=== PATIENT | male | born 1985 | race Caucasian/White ===

== ENCOUNTER 2016-12-21 17:37 | Observation (INO) | payer BC ==
[2016-12-21] MEDS ORDERED: ONDANSETRON 4 MG/2 ML VIAL IVP ONE (18:46)
[2016-12-21] MEDS ORDERED: fentaNYL 100 MCG/2 ML INJ IVP ONE (18:46)
[2016-12-21] MEDS ORDERED: NS 1,000 ML IV ONE (18:46)
--- NOTE | 2016-12-21 18:51 | EDPHY ---
H & P Time Seen by Provider: 12/21/16 18:36 HPI/ROS: CHIEF COMPLAINT: Abdominal pain HISTORY OF PRESENT ILLNESS: Patient had 3 weeks ago pretty serious gastroenteritis with vomiting and diarrhea and then recovered. But 4 days ago started intermittent lower abdominal pain right greater than left. Radiates to both testicles but not associated with urinary symptoms. A little bit of back pain but bilateral. Associated with subjective fever and chills and nausea but no vomiting. No diarrhea. Symptoms moderate. Went to his primary care physician's office and referred here for further evaluation. REVIEW OF SYSTEMS: Eye: no change in vision ENT: no sore throat Cardiac: no chest pain or syncope Pulmonary: no cough or SOB Abdomen: HPI Musculoskeletal: no back pain Skin: no rash Neuro: no headache Constitutional: HPI : No dysuria or hematuria A comprehensive 10 point review of systems is otherwise negative aside from elements mentioned in the history of present illness. PAST MEDICAL HISTORY: Negative Family history: Multiple second-degree relatives with Crohn's disease. Social history: No recent foreign travel and no drug use General Appearance: Alert and conversant, cooperative. Eyes: No scleral icterus. ENT, Mouth: Normal mucous membranes. Respiratory: Normal respiratory effort, breath sounds equal, lungs are clear to auscultation. Cardiovascular: Regular rate and rhythm. Gastrointestinal: Right lower quadrant tenderness greater than left but no rebound or guarding. Normal male . Neurological: Alert and oriented x3. Normally conversant. Face symmetric, normal movement and sensation in all extremities. Skin: Warm and dry, no rashes. Musculoskeletal: No peripheral edema and no joint swelling. Psychiatric: Not agitated. Emergency Department course/MDM: Normal saline 1 L, probably likely mildly clinically dehydrated with decreased oral intake and heart rate 100. Fentanyl 100 mcg IV and Zofran 4 mg IV. I- STAT and CT scanning. 1921: Creatinine 0.9, abdominal CT scan ordered. 2046: CT scanning per Dr. Cleary reveals appendicitis ruptured with walled- off perforation. IV Invanz, surgical consultation, admission. Discussed results with patient and father and Delilah at this time. Smoking Status: Never smoked Constitutional: Initial Vital Signs Temperature (C) 38.6 C H 12/21/16 17:50 Heart Rate 100 12/21/16 17:50 Respiratory Rate 14 12/21/16 17:50 Blood Pressure 99/70 L 12/21/16 17:50 O2 Sat (%) 96 12/21/16 17:50 O2 Delivery Mode Room Air Allergies/Adverse Reactions: No Known Allergies Allergy (Unverified 12/21/16 17:56) Home Medications: Medication Instructions Recorded NK [No Known Home Meds] 12/21/16 Medical Decision Making - Diagnostics Imaging Results: Imaging Impressions Abdomen CT 12/21/16 19:21 Impression: 1. Appendicitis with suspected rupture and phlegmon, as well as a small amount of free fluid extending caudally into the pelvis, with an associated right lower quadrant reactive lymphadenitis. 2. Ectopic pelvic left kidney. Findings were discussed with BENITEZ NUNES MD at 20:42, on 12/21/2016. Differential Diagnosis: Differential diagnosis considered for abdominal pain including but not limited to appendicitis, cholecystitis, pancreatitis, gastritis and urinary tract infection. Consult/Admit Bed Type: [facility] [employer] construction [employer] - Data Points Laboratory Results: Laboratory Results 12/21/16 18:50 12/21/16 18:50 12/21/16 12/21/16 12/21/16 20:25 18:57 18:50 WBC RBC Hgb POC Hgb 14.3 gm/dL gm/dL (13.7-17.5) Hct POC Hct 42 % % (40-51) MCV MCH MCHC RDW Plt Count MPV Neut % (Auto) Lymph % (Auto) [place] % (Auto) Eos % (Auto) Baso % (Auto) Nucleat RBC Rel Count Absolute Neuts (auto) Absolute Lymphs (auto) Absolute Monos (auto) Absolute Eos (auto) Absolute Basos (auto) Absolute Nucleated RBC Immature Gran % Immature Gran # PT INR APTT VBG Lactic Acid POC Sodium 142 mEq/L mEq/L (134-144) Sodium 140 mEq/L mEq/L (134-144) POC Potassium 3.2 mEq/L L mEq/L (3.3-5.0) Potassium 3.6 mEq/L mEq/L (3.5-5.2) POC Chloride 102 mEq/L mEq/L (97-110) Chloride 100 mEq/L mEq/L (97-110) Carbon Dioxide 24 mEq/l mEq/l (22-31) Anion Gap 16 mEq/L mEq/L (8-16) POC BUN 13 mg/dL mg/dL (7-23) BUN 14 mg/dL mg/dL (7-23) Creatinine 1.0 mg/dL mg/dL (0.7-1.3) POC Creatinine 0.9 mg/dL mg/dL (0.7-1.3) Estimated GFR > 60 Glucose 98 mg/dL mg/dL (70-100) POC Glucose 95 mg/dL mg/dL (70-100) Calcium 9.8 mg/dL mg/dL (8.5-10.4) Total Bilirubin 1.0 mg/dL mg/dL (0.1-1.4) Conjugated Bilirubin 0.2 mg/dL mg/dL (0.0-0.5) Unconjugated Bilirubin 0.8 mg/dL mg/dL (0.0-1.1) AST 16 IU/L L IU/L (17-59) ALT 33 IU/L IU/L (21-72) Alkaline Phosphatase 78 IU/L IU/L (38-126) Total Protein 7.7 g/dL g/dL (6.3-8.2) Albumin 4.4 g/dL g/dL (3.5-5.0) Lipase 49 IU/L IU/L (23-300) Urine Color PALE YELLOW Urine Appearance CLEAR Urine pH 6.0 (5.0-7.5) Ur Specific [place] 1.023 (1.002-1.030) Urine Protein NEGATIVE (NEGATIVE) Urine Ketones TRACE H (NEGATIVE) Urine Blood 1+ H (NEGATIVE) Urine Nitrate NEGATIVE (NEGATIVE) Urine Bilirubin NEGATIVE (NEGATIVE) Urine Urobilinogen NEGATIVE EU EU (0.2-1.0) Ur Leukocyte Esterase NEGATIVE (NEGATIVE) Urine RBC 1-3 /hpf /hpf (0-3) Urine WBC 1-3 /hpf /hpf (0-3) Ur Epithelial Cells NONE SEEN /lpf /lpf (NONE-1+) Urine Mucus TRACE /lpf /lpf (NONE-1+) Urine Glucose NEGATIVE (NEGATIVE) 12/21/16 12/21/16 12/21/16 18:50 18:50 18:50 WBC 13.00 10^3/uL H 10^3/uL (3.80-9.50) RBC 4.85 10^6/uL 10^6/uL (4.40-6.38) Hgb 14.9 g/dL g/dL (13.7-17.5) POC Hgb Hct 43.4 % % (40.0-51.0) POC Hct MCV 89.5 fL fL (81.5-99.8) MCH 30.7 pg pg (27.9-34.1) MCHC 34.3 g/dL g/dL (32.4-36.7) RDW 11.6 % % (11.5-15.2) Plt Count 273 10^3/uL 10^3/uL (150-400) MPV 10.5 fL fL (8.7-11.7) Neut % (Auto) 72.0 % % (39.3-74.2) Lymph % (Auto) 17.0 % % (15.0-45.0) [place] % (Auto) 10.0 % % (4.5-13.0) Eos % (Auto) 0.4 % L % (0.6-7.6) Baso % (Auto) 0.3 % % (0.3-1.7) Nucleat RBC Rel Count 0.0 % % (0.0-0.2) Absolute Neuts (auto) 9.36 10^3/uL H 10^3/uL (1.70-6.50) Absolute Lymphs (auto) 2.21 10^3/uL 10^3/uL (1.00-3.00) Absolute Monos (auto) 1.30 10^3/uL H 10^3/uL (0.30-0.80) Absolute Eos (auto) 0.05 10^3/uL 10^3/uL (0.03-0.40) Absolute Basos (auto) 0.04 10^3/uL 10^3/uL (0.02-0.10) Absolute Nucleated RBC 0.00 10^3/uL 10^3/uL (0-0.01) Immature Gran % 0.3 % % (0.0-1.1) Immature Gran # 0.04 10^3/uL 10^3/uL (0.00-0.10) PT 14.2 SEC SEC (12.0-15.0) INR 1.11 (0.83-1.16) APTT 31.5 SEC SEC (23.0-38.0) VBG Lactic Acid 0.8 mmol/L mmol/L (0.7-2.1) POC Sodium Sodium POC Potassium Potassium POC Chloride Chloride Carbon Dioxide Anion Gap POC BUN BUN Creatinine POC Creatinine Estimated GFR Glucose POC Glucose Calcium Total Bilirubin Conjugated Bilirubin Unconjugated Bilirubin AST ALT Alkaline Phosphatase Total Protein Albumin Lipase Urine Color Urine Appearance Urine pH Ur Specific Plain Urine Protein Urine Ketones Urine Blood Urine Nitrate Urine Bilirubin Urine Urobilinogen Ur Leukocyte Esterase Urine RBC Urine WBC Ur Epithelial Cells Urine Mucus Urine Glucose Medications Given: Ertapenem 1 gm/ Sodium (Chloride) 100 mls @ 200 mls/hr IV EDNOW ONE PRN Reason: Protocol Stop: 12/21/16 21:29 Last Admin: 12/21/16 21:16 Dose: 100 mls Discontinued Medications Fentanyl (Sublimaze) 100 mcg IVP EDNOW ONE Stop: 12/21/16 18:47 Last Admin: 12/21/16 19:09 Dose: 100 mcg Sodium Chloride (Ns) 1,000 mls @ 0 mls/hr IV EDNOW ONE; Wide Open PRN Reason: Protocol Stop: 12/21/16 18:47 Last Admin: 12/21/16 19:10 Dose: 1,000 mls Ondansetron HCl (Zofran) 4 mg IVP EDNOW ONE Stop: 12/21/16 18:47 Last Admin: 12/21/16 19:09 Dose: 4 mg Point of Care Test Results: 12/21/16 18:57 POC Sodium 142 POC Potassium 3.2 L POC Chloride 102 POC BUN 13 POC Creatinine 0.9 POC Glucose 95 Departure - Departure Disposition: [facility] Inpatient Acute Clinical Impression: Acute appendicitis with rupture Condition: Good
[2016-12-21 19:02] LABS: % IMMATURE GRANULYOCYTES 0.3 % (0.0-1.1); ABSOLUTE IMMATURE GRANULOCYTES 0.04 10^3/uL (0.00-0.10); ADD DIFF? NO; ADD MORPH? NO; ADD SCAN? NO; ATYPICAL LYMPHOCYTE FLAG 10 (0-99); FRAGMENT RBC FLAG 0 (0-99); HEMATOCRIT 43.4 % (40.0-51.0); HEMOGLOBIN 14.9 g/dL (13.7-17.5); LEFT SHIFT FLG 0 (0-99); LIPEMIA HEMOLYSIS FLAG 90 (0-99); MEAN CELL HEMOGLOBIN 30.7 pg (27.9-34.1); MEAN CELL HEMOGLOBIN CONCENTR. 34.3 g/dL (32.4-36.7); MEAN CELL VOLUME 89.5 fL (81.5-99.8); MEAN PLATELET VOLUME 10.5 fL (8.7-11.7); PLATELET CLUMPS FLAG 0 (0-99); PLATELET COUNT 273 10^3/uL (150-400); RED BLOOD CELL COUNT 4.85 10^6/uL (4.40-6.38); RED CELL DISTRIBUTION WIDTH 11.6 % (11.5-15.2)
[2016-12-21 19:11] LABS: APTT 31.5 SEC (23.0-38.0); INR 1.11 (0.83-1.16); PROTIME(PATIENT) 14.2 SEC (12.0-15.0)
[2016-12-21 19:22] LABS: ALANINE AMINOTRANSFERASE 33 IU/L (21-72); ALBUMIN 4.4 g/dL (3.5-5.0); ALKALINE PHOSPHATASE 78 IU/L (38-126); ANION GAP 16 mEq/L (8-16); ASPARTATE AMINOTRANSFERASE 16 IU/L (17-59); BILIRUBIN-CONJUGATED 0.2 mg/dL (0.0-0.5); BILIRUBIN-UNCONJUGATED 0.8 mg/dL (0.0-1.1); CALCIUM 9.8 mg/dL (8.5-10.4); CARBON DIOXIDE 24 mEq/l (22-31); CHLORIDE 100 mEq/L (97-110); GLOMERULAR FILTRATION RATE > 60; GLUCOSE 98 mg/dL (70-100); POTASSIUM 3.6 mEq/L (3.5-5.2); SODIUM 140 mEq/L (134-144); TOTAL PROTEIN 7.7 g/dL (6.3-8.2)
[2016-12-21] MEDS ORDERED: IOPAMIDOL (ISOVUE-300) 100 ML BTL ONE (19:29)
[2016-12-21 20:44] LABS: COLOR PALE YELLOW; LEUKOCYTE ESTERASE,URINE NEGATIVE (NEGATIVE); NITRITE,URINE NEGATIVE (NEGATIVE)
[2016-12-21 20:48] LABS: MUCUS TRACE /lpf (NONE-1+)
[2016-12-21] MEDS ORDERED: ERTAPENEM 1 GM in NS 100 ML IV ONE (21:00)
--- NOTE | 2016-12-21 22:57 | PDGENHP ---
History and Physical - Chief Complaint Right lower quadrant abdominal pain - History of Present Illness This is a 31-year-old gentleman who presents to the hospital for evaluation of 3 days of worsening right lower quadrant abdominal pain and testicular pain. The patient had been feeling ill for 3 days but was able to manage work and perform activities of daily living. Patient's pain was intractable and he decided to present to the emergency room for evaluation. CT scan of the abdomen and pelvis notable for what appears to be an appendiceal phlegmon without signs of abscess formation. Phlegmon is not an area that would be easily accessed with percutaneous drainage. History Information - Allergies/Home Medication List Allergies/Adverse Reactions: No Known Allergies Allergy (Unverified 12/21/16 17:56) Home Medications: NK [No Known Home Meds] 12/21/16 [Last Taken Unknown] I have personally reviewed and updated: family history, medical history, social history, surgical history - Past Medical History no pertinent PMH - Surgical History Reports: no pertinent surgical hx - Family History Positive for: non-pertinent - Social History Smoking Status: Never smoked Review of Systems ROS: 10pt was reviewed & negative except for what was stated in HPI & below Constitutional: Reports: fever, malaise Respiratory: Reports: no symptoms Gastrointestinal: Reports: other (Three weeks ago the entire family had gastroenteritis including the patient. This appeared to be self-limiting.) Physical Exam Temp Pulse Resp BP Pulse Ox 38.6 C H 91 16 125/75 H 100 12/21/16 17:50 12/21/16 20:00 12/21/16 20:00 12/21/16 20:00 12/21/16 20:00 Constitutional: not in pain, uncomfortable Eyes: anicteric sclera, EOMI Ears, Nose, Mouth, Throat: moist mucous membranes, hearing normal Cardiovascular: regular rate and rhythym Peripheral Pulses: 2+: carotid (R), carotid (L), femoral (R), femoral (L), dorsalis-pedis (R), dorsalis-pedis (L) Respiratory: no respiratory distress, clear to auscultation Gastrointestinal: no palpable masses, other (Tenderness just below McBurney's point), No guarding, No rebound, No distension Genitourinary: no bladder fullness Skin: warm, no rashes or abrasions, No mottled Musculoskeletal: full muscle strength, normal joint ROM Neurologic: AAOx3, CN II-XII Intact Psychiatric: interacting appropriately, not anxious Lab Data & Imaging Review 12/21/16 18:50 12/21/16 18:50 WBC 13.00 10^3/uL (3.80-9.50) H 12/21/16 18:50 RBC 4.85 10^6/uL (4.40-6.38) 12/21/16 18:50 Hgb 14.9 g/dL (13.7-17.5) 12/21/16 18:50 POC Hgb 14.3 gm/dL (13.7-17.5) 12/21/16 18:57 Hct 43.4 % (40.0-51.0) 12/21/16 18:50 POC Hct 42 % (40-51) 12/21/16 18:57 MCV 89.5 fL (81.5-99.8) 12/21/16 18:50 MCH 30.7 pg (27.9-34.1) 12/21/16 18:50 MCHC 34.3 g/dL (32.4-36.7) 12/21/16 18:50 RDW 11.6 % (11.5-15.2) 12/21/16 18:50 Plt Count 273 10^3/uL (150-400) 12/21/16 18:50 MPV 10.5 fL (8.7-11.7) 12/21/16 18:50 Neut % (Auto) 72.0 % (39.3-74.2) 12/21/16 18:50 Lymph % (Auto) 17.0 % (15.0-45.0) 12/21/16 18:50 Day % (Auto) 10.0 % (4.5-13.0) 12/21/16 18:50 Eos % (Auto) 0.4 % (0.6-7.6) L 12/21/16 18:50 Baso % (Auto) 0.3 % (0.3-1.7) 12/21/16 18:50 Nucleat RBC Rel Count 0.0 % (0.0-0.2) 12/21/16 18:50 Absolute Neuts (auto) 9.36 10^3/uL (1.70-6.50) H 12/21/16 18:50 Absolute Lymphs (auto) 2.21 10^3/uL (1.00-3.00) 12/21/16 18:50 Absolute Monos (auto) 1.30 10^3/uL (0.30-0.80) H 12/21/16 18:50 Absolute Eos (auto) 0.05 10^3/uL (0.03-0.40) 12/21/16 18:50 Absolute Basos (auto) 0.04 10^3/uL (0.02-0.10) 12/21/16 18:50 Absolute Nucleated RBC 0.00 10^3/uL (0-0.01) 12/21/16 18:50 Immature Gran % 0.3 % (0.0-1.1) 12/21/16 18:50 Immature Gran # 0.04 10^3/uL (0.00-0.10) 12/21/16 18:50 PT 14.2 SEC (12.0-15.0) 12/21/16 18:50 INR 1.11 (0.83-1.16) 12/21/16 18:50 APTT 31.5 SEC (23.0-38.0) 12/21/16 18:50 VBG Lactic Acid 0.8 mmol/L (0.7-2.1) 12/21/16 18:50 POC Sodium 142 mEq/L (134-144) 12/21/16 18:57 Sodium 140 mEq/L (134-144) 12/21/16 18:50 POC Potassium 3.2 mEq/L (3.3-5.0) L 12/21/16 18:57 Potassium 3.6 mEq/L (3.5-5.2) 12/21/16 18:50 POC Chloride 102 mEq/L (97-110) 12/21/16 18:57 Chloride 100 mEq/L (97-110) 12/21/16 18:50 Carbon Dioxide 24 mEq/l (22-31) 12/21/16 18:50 Anion Gap 16 mEq/L (8-16) 12/21/16 18:50 POC BUN 13 mg/dL (7-23) 12/21/16 18:57 BUN 14 mg/dL (7-23) 12/21/16 18:50 Creatinine 1.0 mg/dL (0.7-1.3) 12/21/16 18:50 POC Creatinine 0.9 mg/dL (0.7-1.3) 12/21/16 18:57 Estimated GFR > 60 12/21/16 18:50 Glucose 98 mg/dL (70-100) 12/21/16 18:50 POC Glucose 95 mg/dL (70-100) 12/21/16 18:57 Calcium 9.8 mg/dL (8.5-10.4) 12/21/16 18:50 Total Bilirubin 1.0 mg/dL (0.1-1.4) 12/21/16 18:50 Conjugated Bilirubin 0.2 mg/dL (0.0-0.5) 12/21/16 18:50 Unconjugated Bilirubin 0.8 mg/dL (0.0-1.1) 12/21/16 18:50 AST 16 IU/L (17-59) L 12/21/16 18:50 ALT 33 IU/L (21-72) 12/21/16 18:50 Alkaline Phosphatase 78 IU/L (38-126) 12/21/16 18:50 Total Protein 7.7 g/dL (6.3-8.2) 12/21/16 18:50 Albumin 4.4 g/dL (3.5-5.0) 12/21/16 18:50 Lipase 49 IU/L (23-300) 12/21/16 18:50 Urine Color PALE YELLOW 12/21/16 20:25 Urine Appearance CLEAR 12/21/16 20:25 Urine pH 6.0 (5.0-7.5) 12/21/16 20:25 Ur Specific [place] 1.023 (1.002-1.030) 12/21/16 20:25 Urine Protein NEGATIVE (NEGATIVE) 12/21/16 20:25 Urine Ketones TRACE (NEGATIVE) H 12/21/16 20:25 Urine Blood 1+ (NEGATIVE) H 12/21/16 20:25 Urine Nitrate NEGATIVE (NEGATIVE) 12/21/16 20:25 Urine Bilirubin NEGATIVE (NEGATIVE) 12/21/16 20:25 Urine Urobilinogen NEGATIVE EU (0.2-1.0) 08/19/17 20:25 Ur Leukocyte Esterase NEGATIVE (NEGATIVE) 12/21/16 20:25 Urine RBC 1-3 /hpf (0-3) 12/21/16 20:25 Urine WBC 1-3 /hpf (0-3) 12/21/16 20:25 Ur Epithelial Cells NONE SEEN /lpf (NONE-1+) 12/21/16 20:25 Urine Mucus TRACE /lpf (NONE-1+) 12/21/16 20:25 Urine Glucose NEGATIVE (NEGATIVE) 12/21/16 20:25 Imaging Review: Imaging Impressions Abdomen CT 12/21/16 19:21 Impression: 1. Appendicitis with suspected rupture and phlegmon, as well as a small amount of free fluid extending caudally into the pelvis, with an associated right lower quadrant reactive lymphadenitis. 2. Ectopic pelvic left kidney. Findings were discussed with BENITEZ NUNES MD at 20:42, on 12/21/2016. Visualized and Interpreted imaging results: Yes Assessment & Plan Assessment: Acute appendicitis with rupture (Acute) Ectopic left pelvic kidney Plan: Options for treatment include antibiotic treatment with watchful waiting and likely interval drainage or laparoscopic appendectomy with possibilities of inability to complete the surgery, injury to surrounding structures and need for more extensive resection. The risks benefits and alternatives of surgery were outlined clearly to the patient and his father all questions were addressed. Invanz was given for antibiotic treatment of appendicitis. The patient would like to proceed with surgery consent was obtained with verbal confirmation of understanding.
--- NOTE | 2016-12-22 00:15 | PDANEPAE ---
ANE History of Present Illness Ruptured appendicitis ANE Past Medical History - Pulmonary History Hx Sleep Apnea: No Sleep Apnea Screening Result - Last Documented: Positive - Endocrine History Hx Diabetes: No ANE Review of Systems - Exercise capacity METS (RN): 4 METS ANE Patient History - Allergies Allergies/Adverse Reactions: No Known Allergies Allergy (Unverified 12/21/16 17:56) - Home Medications Home medications: none Home Medications: NK [No Known Home Meds] 12/21/16 [Last Taken Unknown] - NPO status NPO Status: no food or drink >8 hours NPO Since - Liquids (Date): 12/21/16 NPO Since - Liquids (Time): 18:00 NPO Since - Solids (Date): 12/21/16 NPO Since - Solids (Time): 15:00 - Anes Hx Anes Hx: no prior problems - Smoking Hx Smoking Status: Never smoked ANE Labs/Vital Signs - Labs Result Diagrams: 12/21/16 18:50 12/21/16 18:50 - Vital Signs Blood Pressure: 123/76 Heart Rate: 83 Respiratory Rate: 16 O2 Sat (%): 94 Height: 180.34 cm Weight: 68.039 kg ANE Physical Exam - Airway Neck exam: FROM Mallampati Score: Class 1 Mouth exam: normal dental/mouth exam - Pulmonary Pulmonary: no respiratory distress - Cardiovascular Cardiovascular: regular rate and rhythym - ASA Status ASA Status: II, E
[2016-12-22] MEDS ORDERED: PROPOFOL 200 MG/20 ML VIAL ONE (00:20)
[2016-12-22] MEDS ORDERED: fentaNYL 100 MCG/2 ML INJ ONE ×2 (00:20→00:59)
[2016-12-22] MEDS ORDERED: ROCURONIUM 50 MG/5 ML VIAL ONE (00:22)
[2016-12-22] MEDS ORDERED: GLYCOPYRROLATE 0.2 MG/1 ML VIAL ONE (00:22)
[2016-12-22] MEDS ORDERED: LIDOCAINE 2% 5 ML SDV ONE (00:22)
[2016-12-22] MEDS ORDERED: LIDOCAINE 1% 300 MG/30 ML SDV ONE (00:27)
[2016-12-22] MEDS ORDERED: BUPIVACAINE 0.5% 30 ML SDV ONE (00:28)
[2016-12-22] MEDS ORDERED: ONDANSETRON 4 MG/2 ML VIAL ONE (00:38)
[2016-12-22] MEDS ORDERED: DEXAMETHASONE 4 MG/ML VIAL ONE (00:38)
[2016-12-22] MEDS ORDERED: fentaNYL 100 MCG/2 ML INJ IVP PRN (00:43)
[2016-12-22] MEDS ORDERED: NALOXONE HCL 0.4 MG/ML INJ IVP PRN (00:43)
[2016-12-22] MEDS ORDERED: MEPERIDINE 25 MG/ML SYR IVP PRN (00:43)
[2016-12-22] MEDS ORDERED: SUGAMMADEX SODIUM 200 MG/2 ML VIAL IVP ONE (01:14)
[2016-12-22] MEDS ORDERED: ACETAMINOPHEN 325 MG TAB PO PRN (01:34)
[2016-12-22] MEDS ORDERED: ONDANSETRON 4 MG/2 ML VIAL IVP PRN (01:34)
[2016-12-22] MEDS ORDERED: HYDROCODONE/APAP 5/325 TAB PO PRN (01:34)
--- NOTE | 2016-12-22 01:34 | POSTOPPROG ---
Post Op Note Date of Operation: 12/22/16 Surgeon: Sanchez Mazariegos Price Clerk: none Anesthesiologist: Ilana Anesthesia: GET(General Endotracheal) Pre-op Diagnosis: perforated appendicitis Post-op Diagnosis: same Procedure: Laparoscopic appendectomy Findings: Perforated appendicitis Inf/Abcess present in the surg proc area at time of surgery?: Yes Depth: Organ Space EBL: Minimal Complications: none Specimen(s): Appendix to permanent pathology
--- NOTE | 2016-12-22 01:36 | POSTANESTH ---
Post Anesthetic Evaluation Cardiovascular Status: Normal, Stable Respiratory Status: Normal, Stable Level of Consciousness/Mental Status: Can Participate in Eval Pain Control: Adequate, Prn Tx Ordered Nausea/Vomiting Control: Adequate, Prn Tx Ordered Complications Possibly Related to Anesthesia: None Noted
[2016-12-22] MEDS: LR 1,000 ML IV SCH ×2 (02:20→05:59)
--- NOTE | 2016-12-22 04:46 | GOP ---
[f rep st] OPERATIVE REPORT DATE OF OPERATION: SURGEON: Sanchez Mazariegos MD ANESTHESIA: General endotracheal anesthesia was used. ANESTHESIOLOGIST: Dr. Preciado. PREOPERATIVE DIAGNOSIS: Acute perforated appendicitis. POSTOPERATIVE DIAGNOSIS: Acute perforated appendicitis. PROCEDURE PERFORMED: Laparoscopic appendectomy. FINDINGS: SPECIMENS: Appendix to permanent pathology. 1 L crystalloid. ESTIMATED BLOOD LOSS: 15 mL. INDICATIONS: This is a 31-year-old gentleman who presented to the emergency room with 3 days of worsening abdominal pain. DESCRIPTION OF PROCEDURE: The patient was brought into the operating room after induction of endotracheal anesthesia in the supine position. His abdomen was prepped and draped with chlorhexidine in the normal sterile fashion. A time -out procedure was performed according to institutional standards. Local anesthetic was then infused in the skin and subcutaneous tissue and the trocar sites opened. Supraumbilical Estefani trocar placement was performed and the abdomen was insufflated to 15Torr with carbon dioxide. Working trocars were placed in the lower midline and left flank under direct visualization. The appendix is walled off behind the terminal ilium. Blunt dissection was used to free the adhesions and purulent drainage was immediately noted from the abscess cavity. A window was created between the mesoappendix and the appendix at the base of the cecum and a MOLLY 35 stapler was used to divide the base of the appendix. A LigaSure bipolar energy device was used to control the mesentery. The abdomen was then irrigated and aspirated until clear. The appendix was placed in an Endopouch and brought out through the umbilical incision. After ensuring hemostasis, working trocars were removed. The appendix was passed off. The fascia was closed using 0 Vicryl at the level of the fascia at the umbilical port. All 3 ports are reapproximated in the skin using 4-0 Monocryl. Dermabond was applied. The patient was awakened, extubated, taken to recovery room in stable condition. No immediate complications. COMPLICATIONS: None. /[id number]/MODL MTDD
[2016-12-22] MEDS ORDERED: KETOROLAC 15 MG/1 ML SDV IVP SCH (06:00)
[2016-12-22 08:26] VITALS: BP 123/66; PULSE 75; RESP 16; TEMP 98.7; O2SAT 96
== END 2016-12-22 12:57 | disposition home or self-care (01) ==
LOC: INTOOBSV 21:00 → F1N 22:50 → OBSVTOIN 12-22 03:43 → INTOOBSV 12-22 03:43
PROVIDERS: ADMIT Surgery; ATTEND Surgery
PROC: 0DTJ4ZZ Resection of Appendix, Percutaneous Endoscopic Approach (ICD-10-PCS; principal; 2016-12-21)
DX: K35.2 Acute appendicitis with generalized peritonitis (principal)
CPT/HCPCS: 44970; 74177; G0378; 82947-QW; 96365; J1100; J1335; J1885; J2405; J2704; J3010; Q9967

== ENCOUNTER 2016-12-24 03:57 | Inpatient (IN) | payer BC ==
[2016-12-24] MEDS ORDERED: NS 2,000 ML IV ONE (04:08)
[2016-12-24] MEDS ORDERED: IBUPROFEN 200 MG TAB PO ONE (04:09)
--- NOTE | 2016-12-24 04:09 | EDPHY ---
H & P Stated Complaint: abd pain, diarrhea, fever HPI/ROS: HPI CHIEF COMPLAINT: Abdominal pain, fever, diarrhea HISTORY OF PRESENT ILLNESS: This patient 31-year-old male, recent appendectomy on Friday evening. Was discharged Friday during the day. He went home and did well. However he states around 1030-11 o'clock last night he developed abdominal cramps, fever to 103.5 orally and watery nonbloody diarrhea. He does endorse nausea without vomiting. He states he decided come back to the emergency room due to profuse diarrhea. States he does feel nauseous but has not had any vomiting. Does complain of diffuse abdominal cramping. Past Medical History: No significant medical history Past Surgical History: Recent appendectomy on Friday. Perforated appendix Social History: Denies daily use drugs alcohol tobacco products. Family History: Noncontributory ROS REVIEW OF SYSTEMS: A comprehensive 10 point review of systems is otherwise negative aside from elements mentioned in the history of present illness. Exam Constitutional nontoxic., triage nursing summary reviewed, vital signs reviewed, awake/alert. Noted to be tachycardic and febrile. Eyes normal conjunctivae and sclera, EOMI, PERRLA. HENT normal inspection, atraumatic, moist mucus membranes, no epistaxis, neck supple/ no meningismus, no raccoon eyes. Respiratory clear to auscultation bilaterally, normal breath sounds, no respiratory distress, no wheezing. Cardiovascular rate normal, regular rhythm, no murmur, no edema, distal pulses normal. Gastrointestinal mild tenderness palpation diffusely no peritoneal signs, laparoscopic sites look clean dry and intact,, no rebound, no guarding, normal bowel sounds, no distension, no pulsatile mass. Genitourinary no CVA tenderness. Musculoskeletal no midline vertebral tenderness, full range of motion, no calf swelling, no tenderness of extremities, no meningismus, good pulses, neurovascularly intact. Skin pink, warm, & dry, no rash, skin atraumatic. Neurologic awake, alert and oriented x 3, AAOx3, moves all 4 extremities equally, motor intact, sensory intact, CN II-XII intact, normal cerebellar, normal vision, normal speech. Psychiatric normal mood/affect. Heme/Lymph/Immune no lymphadenopathy. Differential Diagnosis: Includes but is not limited to in a particular order, acute febrile illness, sepsis, bacteremia, dehydration, intra-abdominal abscess , acute diarrheal illness, enteritis, colitis, bowel obstruction Medical Decision Making: Plan for this patient IV establishment fluid bolus, ibuprofen for fever control. Blood work including lactic acid, blood cultures, CT scan abdomen pelvis with IV contrast. Re-evaluation: 0434AM: Patient noted to be tachycardic and febrile. Patient additionally tells me that he is taking Augmentin. 0517AM: Dr. Mcgrath call me with this patient's CT results. His CT scan abdomen pelvis shows ileus versus early small-bowel obstruction additionally there 2 fluid collections in the right lower quadrant 3 x 2 cm and 1.2 cm concerning for early abscess. Additionally the ileum is significantly inflamed with mesenteric inflammation and ileitis. Small amount of free fluid ascites. There is also free air from recent surgery. I have ordered this patient IV Invanz. Patient has received 2 L of fluid here. Ibuprofen for fever control. Patient need to be admitted back to the hospital for abdominal pain, ileus, fever, possible intra-abdominal abscess. Will consult surgery. This time is hemodynamically stable. Lactic acid less than 2. He is not hypotensive. Vital signs are improving. 0523AM: I have consult to Dr. Karlo Chang with surgery. Reason for admission is ileus, acute febrile illness, tachycardia elevated white count and most likely intra-abdominal abscess. Patient remains hemodynamically stable he will be admitted to Dr. Chang. Dr. Mazariegos will be consult this morning as well. Source: Patient - Personal History Current Tetanus/Diphtheria Vaccine: Yes - Medical/Surgical History Hx Asthma: No Hx Chronic Respiratory Disease: No Hx Diabetes: No Hx Cardiac Disease: No Hx Renal Disease: No Hx Cirrhosis: No Hx Alcoholism: No Hx HIV/AIDS: No Hx Splenectomy or Spleen Trauma: No Other PMH: Appendectomy, hernia - Social History Smoking Status: Never smoked Constitutional: Initial Vital Signs Temperature (C) 39.5 C H 12/24/16 04:00 Heart Rate 106 H 12/24/16 04:00 Respiratory Rate 16 12/24/16 04:00 Blood Pressure 110/72 12/24/16 04:00 O2 Sat (%) 96 12/24/16 04:00 O2 Delivery Mode Room Air Allergies/Adverse Reactions: No Known Allergies Allergy (Unverified 12/24/16 04:03) Home Medications: Medication Instructions Recorded Amoxicillin/Clavulanate Pot 875 mg PO BID #10 tab 12/22/16 [Augmentin 875 MG TAB (*)] Herbals/Supplements -Info Only 1 ea PO AD 12/22/16 Hydrocodone/APAP 5/325 [Tracy 1 - 2 tab PO Q4HRS PRN #30 tab 12/22/16 5/325 (*)] Medical Decision Making - Data Points Laboratory Results: Laboratory Results 12/24/16 04:15 12/24/16 04:15 Microbiology Results: MICROBIOLOGY 12/24/16 04:30 Blood Blood Culture - Preliminary 12/24/16 04:30 Blood Blood Culture - Preliminary Medications Given: Acetaminophen (Tylenol) 650 mg PO Q4 PRN PRN Reason: Pain, Mild/Fever, Can Take PO Stop: 06/22/17 15:27 Last Admin: 12/25/16 00:10 Dose: 650 mg Hydromorphone HCl (Dilaudid) 0.8 mg IVP Q1 PRN PRN Reason: Pain, Severe Unable to Take PO Stop: 01/03/17 06:55 Last Admin: 12/25/16 13:57 Dose: 0.5 mg Piperacillin/Tazobactam/Dextrose (Zosyn 3.375 Gm (Premix)) 50 mls @ 100 mls/hr IV Q6HRS LAURENT PRN Reason: Protocol Stop: 01/23/17 17:59 Last Admin: 12/25/16 12:16 Dose: 50 mls Potassium Chloride 40 meq/ (Sodium Chloride) 1,000 mls @ 100 mls/hr IV CONT LAURENT Stop: 06/22/17 16:14 Last Admin: 12/25/16 08:34 Dose: 1,000 mls Discontinued Medications Sodium Chloride (Ns) 2,000 mls @ 0 mls/hr IV EDNOW ONE; Wide Open PRN Reason: Protocol Stop: 12/24/16 04:09 Last Admin: 12/24/16 04:19 Dose: 2,000 mls Ertapenem 1 gm/ Sodium (Chloride) 100 mls @ 200 mls/hr IV EDNOW ONE PRN Reason: Protocol Stop: 12/24/16 05:25 Last Admin: 12/24/16 05:30 Dose: 100 mls Sodium Chloride (Ns) 1,000 mls @ 0 mls/hr IV ONCE ONE PRN Reason: Wide Open Stop: 12/24/16 05:29 Last Admin: 12/24/16 05:30 Dose: 1,000 mls Potassium Chloride/Dextrose/Sod Cl (D5w 1/2 Ns W/ 20 Kcl/L) 1,000 mls @ 125 mls /hr IV CONT LAURENT Stop: 06/22/17 06:59 Last Admin: 12/25/16 02:25 Dose: 1,000 mls Sodium Chloride (Ns) 1,000 mls @ 0 mls/hr IV ONCE ONE PRN Reason: Wide Open Stop: 12/24/16 16:15 Last Admin: 12/24/16 16:29 Dose: 1,000 mls Sodium Chloride (Ns) 1,000 mls @ 3,000 mls/hr IV ONCE ONE Stop: 12/25/16 13:16 Last Admin: 12/25/16 13:16 Dose: 1,000 mls Ibuprofen (Motrin) 800 mg PO EDNOW ONE Stop: 12/24/16 04:10 Last Admin: 12/24/16 04:17 Dose: 800 mg Departure - Departure Disposition: [facility] Inpatient Acute Clinical Impression: Ileus, Intra-abdominal abscess Fever Qualifiers: Fever type: unspecified Qualified Code(s): R50.9 - Fever, unspecified Abdominal pain Qualifiers: Abdominal location: generalized Qualified Code(s): R10.84 - Generalized abdominal pain Condition: Serious
[2016-12-24 04:20] LABS: % IMMATURE GRANULYOCYTES 0.5 % (0.0-1.1); ADD DIFF? NO; ADD MORPH? NO; ADD SCAN? NO; ATYPICAL LYMPHOCYTE FLAG 0 (0-99); FRAGMENT RBC FLAG 0 (0-99); HEMATOCRIT 45.4 % (40.0-51.0); HEMOGLOBIN 15.6 g/dL (13.7-17.5); LEFT SHIFT FLG 0 (0-99); LIPEMIA HEMOLYSIS FLAG 90 (0-99); MEAN CELL HEMOGLOBIN 30.8 pg (27.9-34.1); MEAN CELL HEMOGLOBIN CONCENTR. 34.4 g/dL (32.4-36.7); MEAN CELL VOLUME 89.7 fL (81.5-99.8); MEAN PLATELET VOLUME 10.5 fL (8.7-11.7); PLATELET CLUMPS FLAG 10 (0-99); PLATELET COUNT 273 10^3/uL (150-400); RED BLOOD CELL COUNT 5.06 10^6/uL (4.40-6.38); RED CELL DISTRIBUTION WIDTH 11.6 % (11.5-15.2)
[2016-12-24] MEDS ORDERED: IOPAMIDOL (ISOVUE-300) 100 ML BTL ONE (04:26)
[2016-12-24 04:36] LABS: ALANINE AMINOTRANSFERASE 36 IU/L (21-72); ALBUMIN 3.9 g/dL (3.5-5.0); ALKALINE PHOSPHATASE 77 IU/L (38-126); ANION GAP 16 mEq/L (8-16); ASPARTATE AMINOTRANSFERASE 26 IU/L (17-59); BILIRUBIN,TOTAL 1.1 mg/dL (0.1-1.4); BILIRUBIN-CONJUGATED 0.3 mg/dL (0.0-0.5); BILIRUBIN-UNCONJUGATED 0.8 mg/dL (0.0-1.1); CALCIUM 9.1 mg/dL (8.5-10.4); CARBON DIOXIDE 26 mEq/l (22-31); CHLORIDE 94 mEq/L (97-110); GLOMERULAR FILTRATION RATE > 60; GLUCOSE 147 mg/dL (70-100); POTASSIUM 3.7 mEq/L (3.5-5.2); SODIUM 136 mEq/L (134-144); TOTAL PROTEIN 6.8 g/dL (6.3-8.2)
[2016-12-24 04:51] LABS: INR 1.25 (0.83-1.16); PROTIME(PATIENT) 15.7 SEC (12.0-15.0)
[2016-12-24 04:52] LABS: APTT 29.6 SEC (23.0-38.0)
[2016-12-24] MEDS ORDERED: ERTAPENEM 1 GM in NS 100 ML IV ONE (04:56)
[2016-12-24] MEDS ORDERED: NS 1,000 ML IV ONE ×2 (05:28→16:14)
[2016-12-24 05:30] LABS: COLOR PALE YELLOW; LEUKOCYTE ESTERASE,URINE NEGATIVE (NEGATIVE); NITRITE,URINE NEGATIVE (NEGATIVE)
[2016-12-24 05:32] LABS: MUCUS TRACE /lpf (NONE-1+)
[2016-12-24] MEDS ORDERED: ONDANSETRON 4 MG/2 ML VIAL IVP PRN (06:57)
[2016-12-24] MEDS: D5W 1/2 NS W/ 20 KCl/L 1,000 ML IV SCH ×2 (08:47→17:29)
[2016-12-24] MEDS: HYDROmorphONE/DILAUDID 1 MG/ML SYR IVP PRN (13:12)
[2016-12-24] MEDS ORDERED: ACETAMINOPHEN 650 MG/20.3 ML UDCUP PO PRN (15:25)
[2016-12-24] MEDS: ACETAMINOPHEN 325 MG TAB PO PRN ×2 (15:33→19:44)
[2016-12-24] MEDS: PIPERACILLIN/TAZO 3.375 GM/DEX 50 ML IV SCH (17:49)
--- NOTE | 2016-12-24 23:05 | GHP ---
[f rep st] HISTORY AND PHYSICAL DATE OF ADMISSION: 12/24/2016 HISTORY OF PRESENT ILLNESS: This is a 31-year-old gentleman who presented to the hospital 3 days ag o with perforated appendicitis. He underwent uncomplicated appendectomy and was discharged to home. The patient came back in with nausea without vomiting, intractable diarrhea, dehydration, and elev ated white blood cell count. The patient had a CT scan, which showed fluid within his small bowel a nd possible inflammation not amenable to percutaneous drainage. There were several areas of enhanci ng fluid collection, could be phlegmon or early abscess formation, minimal right hydronephrosis, and free intraperitoneal air, as well as already previously documented left renal pelvis, a large fluid collection that is 3 x 2 cm, but not amenable to drainage. The patient was febrile to 102.9, and w as started on Invanz IV, and then brought into the hospital for definitive care, fluid hydration. PAST MEDICAL HISTORY: Significant for history of recent appendectomy, otherwise negative. REVIEW OF SYSTEMS: Significant for previous diarrhea episode 3 weeks ago with his family. All othe rs reviewed and are negative. FAMILY HISTORY: Noncontributory. MEDICATIONS: At home include Augmentin, Edison, and herbal supplements. ALLERGIES: The patient has no known drug allergies. PHYSICAL EXAMINATION: VITAL SIGNS: The patient's temperature is 103, blood pressure of 125/75, res piratory rate of 16, pulse of 99. HEENT: Sclerae anicteric. Oropharynx is slightly dry. NECK: N o JVD or thyromegaly. Trachea midline. LUNGS: Clear bilaterally. HEART: Regular heart tones. A BDOMEN: Soft, minimally tender in the right lower quadrant. Appropriate incisional tenderness. In cision is clean and dry. EXTREMITIES: Without edema. 2+ femoral pulses. SKIN: No rashes. Joan l skin turgor and tone. IMPRESSION: Perforated appendicitis with signs of systemic inflammatory response. Changed IV antib iotics. Zosyn will be given q.6 hours. We will repeat CT scan in 2 or 3 days to see whether there is any change. If patient remains in the hospital, continue to follow expectantly and manage sympto ms appropriately. /[id number]/MODL
[2016-12-25] MEDS: PIPERACILLIN/TAZO 3.375 GM/DEX 50 ML IV SCH ×4 (00:10→17:22)
[2016-12-25] MEDS: ACETAMINOPHEN 325 MG TAB PO PRN (00:10)
[2016-12-25] MEDS: D5W 1/2 NS W/ 20 KCl/L 1,000 ML IV SCH (02:25)
[2016-12-25] MEDS: POTASSIUM Cl (KCl) 40 MEQ in NS 1,000 ML IV SCH ×2 (08:34→22:10)
[2016-12-25] MEDS ORDERED: NS 1,000 ML IV ONE (12:57)
[2016-12-25 13:41] LABS: % IMMATURE GRANULYOCYTES 0.5 % (0.0-1.1); ABSOLUTE IMMATURE GRANULOCYTES 0.07 10^3/uL (0.00-0.10); ADD DIFF? NO; ADD MORPH? NO; ADD SCAN? NO; ATYPICAL LYMPHOCYTE FLAG 0 (0-99); FRAGMENT RBC FLAG 0 (0-99); HEMATOCRIT 40.6 % (40.0-51.0); HEMOGLOBIN 13.7 g/dL (13.7-17.5); LEFT SHIFT FLG 0 (0-99); LIPEMIA HEMOLYSIS FLAG 80 (0-99); MEAN CELL HEMOGLOBIN 30.5 pg (27.9-34.1); MEAN CELL HEMOGLOBIN CONCENTR. 33.7 g/dL (32.4-36.7); MEAN CELL VOLUME 90.4 fL (81.5-99.8); MEAN PLATELET VOLUME 10.4 fL (8.7-11.7); PLATELET CLUMPS FLAG 0 (0-99); PLATELET COUNT 264 10^3/uL (150-400); RED BLOOD CELL COUNT 4.49 10^6/uL (4.40-6.38); RED CELL DISTRIBUTION WIDTH 11.8 % (11.5-15.2)
[2016-12-25] MEDS: HYDROmorphONE/DILAUDID 1 MG/ML SYR IVP PRN (13:57)
[2016-12-25] MEDS ORDERED: HYDROCODONE/APAP 5/325 TAB PO PRN (14:50)
[2016-12-25] MEDS: KETOROLAC 15 MG/1 ML SDV IVP SCH (17:22)
--- NOTE | 2016-12-25 21:03 | SOAPPROG ---
SOAP Progress Note Assessment/Plan: Assessment/Plan: 31 yo man with hx of perforated appendicitis treated operatively. Following discharge fever and diarrhea prompted return with admission within [address] not helpful in planning drainage as too soon to original operation WBC 15 down form 20 Afebrile x 12 hr Diarrhea subsiding RRR CTA abd soft tender at incision and rlq (mild no peritoneal signs) Incisions c/d/i Better today continue Zosyn CT in 48-72 hrs if not clinically improving Supportive care 12/25/16 21:00 Objective: Vital Signs Temp Pulse Resp BP Pulse Ox 37.0 C 76 14 104/60 96 12/25/16 19:37 12/25/16 19:37 12/25/16 19:37 12/25/16 19:37 12/25/16 19:37 Laboratory Results 12/25/16 13:23 12/24/16 12/25/16 12/26/16 05:59 05:59 05:59 Intake Total 5692 3400 Output Total 1250 Balance 4442 3400 PT 15.7 SEC (12.0-15.0) H 12/24/16 04:15 INR 1.25 (0.83-1.16) H 12/24/16 04:15 ICD10 Worksheet Patient Problems: Problems Problem Status Onset Abdominal pain Acute Fever Acute Ileus Acute Intra-abdominal abscess Acute Acute appendicitis with rupture Acute
[2016-12-26] MEDS: KETOROLAC 15 MG/1 ML SDV IVP SCH ×4 (00:04→18:10)
[2016-12-26] MEDS: PIPERACILLIN/TAZO 3.375 GM/DEX 50 ML IV SCH ×4 (00:04→18:10)
[2016-12-26] MEDS: POTASSIUM Cl (KCl) 40 MEQ in NS 1,000 ML IV SCH ×2 (06:47→16:02)
--- NOTE | 2016-12-26 12:22 | SOAPPROG ---
SOAP Progress Note Assessment/Plan: Assessment/Plan: 31 yo man with hx of perforated appendicitis treated operatively. Following discharge fever and diarrhea prompted return with admission within [address] not helpful in planning drainage as too soon to original operation Afebrile x 24 hr Diarrhea subsiding non overnight RRR CTA abd soft tender at incision and rlq (mild no peritoneal signs) Incisions c/d/i Better today continue Zosyn CT in 48-72 hrs if not clinically improving Supportive care C.diff if diarrhea returns Anticipate d/c in 24 hr 12/26/16 12:21 Objective: Vital Signs Temp Pulse Resp BP Pulse Ox 37.1 C 73 16 100/69 96 12/26/16 11:38 12/26/16 11:38 12/26/16 11:38 12/26/16 11:38 12/26/16 11:38 Laboratory Results 12/25/16 13:23 12/25/16 12/26/16 12/27/16 05:59 05:59 05:59 Intake Total 5692 5108 Output Total 1250 Balance 4442 5108 PT 15.7 SEC (12.0-15.0) H 12/24/16 04:15 INR 1.25 (0.83-1.16) H 12/24/16 04:15 ICD10 Worksheet Patient Problems: Problems Problem Status Onset Abdominal pain Acute Fever Acute Ileus Acute Intra-abdominal abscess Acute Acute appendicitis with rupture Acute
[2016-12-27] MEDS: KETOROLAC 15 MG/1 ML SDV IVP SCH ×2 (00:25→05:33)
[2016-12-27] MEDS: PIPERACILLIN/TAZO 3.375 GM/DEX 50 ML IV SCH ×2 (00:26→05:33)
[2016-12-27] MEDS: POTASSIUM Cl (KCl) 40 MEQ in NS 1,000 ML IV SCH (03:07)
[2016-12-27 07:14] VITALS: BP 119/77; PULSE 60; RESP 20; TEMP 98.5; O2SAT 96
== END 2016-12-27 09:03 | disposition home or self-care (01) | DRG 372 ==
LOC: F3N 05:55 → F3E 17:05
PROVIDERS: ADMIT Surgery; ATTEND Surgery
DX: K35.2 Acute appendicitis with generalized peritonitis (principal); R65.10 Systemic inflammatory response syndrome (SIRS) of non-infectious origin without acute organ dysfunction; N13.30 Unspecified hydronephrosis; Z98.890 Other specified postprocedural states
CPT/HCPCS: 96365; J1170; J1335; J1885; J2543; Q9967